=== PATIENT | male | born 1955 | race Caucasian/White ===

== ENCOUNTER 2023-12-01 09:38 | Outpatient (OUT) | payer MEDICARE, OTHER, SELFPAY ==
[2023-12-01 11:56] LABS: Prostate Specific Antigen Scrn 2.08 ng/mL (<=4.00)
== END 2023-12-01 09:39 | disposition home or self-care (01) ==
PROVIDERS: PCP Internal Medicine; Visit Provider Internal Medicine
DX: Z12.5 Encounter for screening for malignant neoplasm of prostate (principal)
CPT/HCPCS: 36415; G0103

== ENCOUNTER 2024-05-20 17:21 | Emergency (ER) | payer MEDICARE, OTHER, SELFPAY ==
[2024-05-20 17:32] VITALS: BP 156/101; PULSE 91; TEMP 36.4; O2SAT 97; BMI 25.8
--- NOTE | 2024-05-20 17:37 | XR_ITS ---
The [address] [address] Patient Name: SHAD JENSEN MRN: [id number] date: 1955 Sex: M Assigned Patient Location: ER Current Patient Location: Accession/Order Number: [id number] Exam Date: 05/20/2024 19:15 Report Date: 05/20/2024 20:51 At the request of: NON-STAFF PHYSICIAN Procedure: XR finger RT min 2V IMAGES REVIEWED: XR finger RT min 2V COMPARISON: None available. CLINICAL INDICATION: little finger crush injury FINDINGS/IMPRESSION: 1. Indeterminant tiny densities overlying the dorsal-ulnar aspect of the fifth digit soft tissues at the level of the PIP joint. Possible tiny retained foreign bodies versus at the skin surface. 2. Apparent fixed flexion deformity at the fifth PIP joint, may suggest extensor tendon injury. 3. No evidence of acute osseous abnormality of the right fifth digit. Electronically authenticated by: WEI BYERS Date: 05/20/2024 20:51
--- OUTSIDE RECORDS SUMMARY | 2024-05-20 17:41 | XMS_ITS | CCD ---
Author Organization [facility] CliniSyct Care Team Providers Care Electrical Solderer Name Role Phone REQUEST, DR SHAW LISTED Admitting Unavaila ble REQUEST, DR SHAW LISTED Attending Unavaila ble REQUEST, DR SHAW LISTED Consulting Unavaila ble BALL, DR IBANEZ Admitting Unavailable BALL, DR IBANEZ Attending Unavailable BALL, DR IBANEZ Primary Care Unavailable BALL, DR IBANEZ Consulting Unavailable BALL, DR IBANEZ Admitting Unavailable BALL, DR IBANEZ Attending Unavailable BALL, DR IBANEZ Primary Care Unavailable BALL, DR IBANEZ Consulting Unavailable BALL, DR IBANEZ Admitting Unavailable BALL, DR IBANEZ Attending Unavailable BALL, DR IBANEZ Primary Care Unavailable REQUEST, DR SHAW LISTED Consulting Unavaila ble Jigar, Alden Unavailable Sahara Hurley Unavailable Medications Current Medications Medication Drug Class(es) Dates Sig (Normalized) Sig (Original) olopatadine 2 mg/ml ophthalmic solution (3 sources) Histamine-1 Receptor Inhibitor Start: 04-05-2023 take 1 drop(s) into the eye(s) once daily Pataday 0.2 % 1 drop(s) each eye Once a day Use the drops as prescribed anterior symptoms improved Apr, Active Start: 04-05-2023 take 1 drop(s) into the eye(s) once daily Pataday 0.2 % 1 drop(s) each eye Once a day Use the drops as prescribed anterior symptoms improved Apr, Active Problems Active Problems Problem Classification Problem Date Documented Date Episodic/Chronic Abdominal hernia (2 sources) Inguinal hernia; Translations: [Unilateral inguinal hernia, without obstruction or gangrene, not specified as recurrent] Episodic Genitourinary symptoms and ill-defined conditions (7 sources) Nocturia; Translations: [Nocturia] Episodic Hyperplasia of prostate (11 sources) Lower urinary tract symptoms due to benign prostatic hypertrophy; Translations: [Benign prostatic hyperplasia with lower urinary tract symptoms] Onset: 01-20-2017 Chronic Inflammation; infection of eye (except that caused by tuberculosis or sexually transmitteddisease) (1 source) Acute atopic conjunctivitis, bilateral Episodic Open wounds of extremities (2 sources) Open wound of hand except fingers without complication; Translations: [Open wound of hand except finger(s) alone, without mention of complication] Episodic Other circulatory disease (2 sources) Elevated blood-pressure reading without diagnosis of hypertension; Translations: [Elevated blood-pressure reading, without diagnosis of hypertension] Episodic Other ear and sense organ disorders (2 sources) Sensorineural hearing loss, bilateral; Translations: [Sensorineural hearing loss, bilateral] Onset: 01-20-2017 Chronic Other ear and sense organ disorders (2 sources) Tinnitus; Translations: [Tinnitus, unspecified ear] Episodic Other injuries and conditions due to external causes (2 sources) History of fall; Translations: [History of falling] Episodic Other nervous system disorders (7 sources) Hereditary motor and sensory neuropathy; 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 Other nervous system disorders (2 sources) Hereditary motor and sensory neuropathy Chronic Other nutritional; endocrine; and metabolic disorders (5 sources) Body mass index 25-29 - overweight; Translations: [Overweight] Episodic Other nutritional; endocrine; and metabolic disorders (2 sources) Overweight Episodic Other nutritional; endocrine; and metabolic disorders (2 sources) Overweight; Translations: [Overweight] Episodic Skin and subcutaneous tissue infections (2 sources) Cellulitis and abscess of hand excluding digits; Translations: [Cellulitis and abscess of hand, except fingers and thumb] Episodic Past or Other Problems Problem Classification Problem Date Documented Da te Episodic/Chronic Other screening for suspected conditions (not mental disorders or infectious disease) (8 sources) Encounter for screening for malignant neoplasm of prostate; Translations: [Encounter for screening for diseases of the blood and blood-forming organs and certain disorders involving the immune mechanism] Onset: 01-20-2017 Episodic Results Test Name Value Interpretation Reference Range Facility CBC AUTO DIFFon 11-16-2022 BASO # 0.0 103/ul Normal 0.0-0.1 [facility] Comment on above: Performed By: #### DATCBC #### [facility] [address] [address] [address] Rebel Huitron Basophils/100 WBC (Bld) 0.4 % Normal 0.2-2.0 [facility] Comment on above: Performed By: #### DATCBC #### [facility] [address] [place] [address] Dr. Rebel Huitron EO # 0.1 103/ul Normal 0.0-0.7 [facility] Comment on above: Performed By: #### DATCBC #### [facility] [address] [place] [address] Dr. Rebel Huitron Eosinophils/100 WBC (Bld) 0.9 % Normal 0.9-7.0 [facility] Comment on above: Performed By: #### DATCBC #### [facility] [address] [place] [address] Dr. Rebel Huitron Erythrocyte distribution width (RBC) [Ratio] 13.5 % Normal 11.0-15.0 [facility] Comment on above: Performed By: #### DATCBC #### [facility] [address] [place] [address] Dr. Rebel Huitron Hematocrit (Bld) [Volume fraction] 43.4 % Normal 42.0-54.0 [facility] Comment on above: Performed By: #### DATCBC #### [facility] [address] [place] [address] Dr. Rebel Huitron Hemoglobin (Bld) [Mass/Vol] 14.7 g/dL Normal 14.0-18.0 [facility] Comment on above: Performed By: #### DATCBC #### [facility] [address] [place] [address] Dr. Rebel Huitron IG # 0.03 10e3/ul Normal 0.00-0.03 [facility] Comment on above: Performed By: #### DATCBC #### [facility] [address] [place] [address] Dr. Rebel Huitron IG % 0.4 % Normal 0.0-0.5 [facility] Comment on above: Performed By: #### DATCBC #### [facility] [address] [place] [address] Dr. Rebel Huitron LYMPH # 1.3 103/ul Normal 1.2-3.[address] [facility] Comment on above: Performed By: #### DATCBC #### [facility] [address] [place] [address] Dr. Rebel Huitron Lymphocytes/100 WBC (Bld) 19.3 % Critically low 20.5-60.0 [facility] Comment on above: Performed By: #### DATCBC #### [facility] [address] [place] [address] Dr. Rebel Huitron MCH (RBC) [Entitic mass] 28.9 pg Normal 25.9-34.0 [facility] Comment on above: Performed By: #### DATCBC #### [facility] [address] [place] [address] Dr. Rebel Huitron MCHC (RBC) [Mass/Vol] 33.9 g/dL Normal 29.9-35.2 [facility] Comment on above: Performed By: #### DATCBC #### [facility] [address] [place] [address] Dr. Rebel Huitron MCV (RBC) [Entitic vol] 85.3 fL Normal 80.0-94.0 [facility] Comment on above: Performed By: #### DATCBC #### [facility] [address] [place] [address] Dr. Rebel Huitron MONO # 0.5 103/ul Normal 0.3-0.8 [facility] Comment on above: Performed By: #### DATCBC #### [facility] [address] [place] [address] Dr. Rebel Huitron Monocytes/100 WBC (Bld) 8.0 % Normal 1.7-12.0 [facility] Comment on above: Performed By: #### DATCBC #### [facility] [address] [place] [address] Dr. Rebel Huitron NEUT # 4.8 103/ul Normal 1.4-6.5 [facility] Comment on above: Performed By: #### DATCBC #### [facility] [address] [place] [address] Dr. Rebel Huitron Neutrophils/100 WBC (Bld) 71.0 % Normal 43.0-75.0 [facility] Comment on above: Performed By: #### DATCBC #### [facility] [address] [address] [address] Rebel Huitron Platelet mean volume (Bld) [Entitic vol] 11.2 fL Normal 9.5-13.5 [facility] Comment on above: Performed By: #### DATCBC #### [facility] [address] [address] [address] Rebel Huitron PLT 171 103/ul Normal 150-[address] [facility] Comment on above: Performed By: #### DATCBC #### [facility] [address] [address] [address] Rebel Huitron RBC 5.09 106/ul Normal 4.70-6.10 [facility] Comment on above: Performed By: #### DATCBC #### [facility] [address] [place] [address] Dr. Rebel Huitron WBC 6.7 103/ul Normal 4.0-11.0 [facility] Comment on above: Performed By: #### DATCBC #### [facility] [address] [address] [address] Rebel Huitron ANTONIO- BMP WITH LIPIDon 2022 Anion gap [Moles/Vol] 11.1 mmol/L Normal [facility] Comment on above: Performed By: #### DATBMP #### [facility] [address] [place] [address] Dr. Rebel Huitron Calcium [Mass/Vol] 8.9 mg/dL Normal 8.5-10.[address] [facility] Comment on above: Performed By: #### DATBMP #### [facility] [address] [address] [address] Rebel Huitron Chloride [Moles/Vol] 103 mmol/L Normal 98-[address] [facility] Comment on above: Performed By: #### DATBMP #### [facility] [address] [address] [address] Rebel Huitron Cholesterol [Mass/Vol] 175 mg/dL Normal <=[address] [facility] Comment on above: Performed By: #### DATBMP #### [facility] [address] [address] [address] Rebel Huitron Cholesterol in HDL [Mass/Vol] 59 mg/dL Normal 40-60 [facility] Comment on above: Performed By: #### DATBMP #### [facility] [address] [address] [address] Rebel Huitron Cholesterol in LDL [Mass/Vol] 107.6 mg/dL Normal [facility] Comment on above: Performed By: #### DATBMP #### [facility] [address] [address] [address] Rebel Huitron CO2 [Moles/Vol] 27.2 mmol/L Normal 21.0-32.0 [facility] Comment on above: Performed By: #### DATBMP #### [facility] [address] [place] [address] Dr. Rebel Huitron Creatinine [Mass/Vol] 0.84 mg/dL Normal 0.70-1.30 [facility] Comment on above: Performed By: #### DATBMP #### [facility] [address] [place] [address] Dr. Rebel Huitron EGFR-AF JORDANIAN >60 Normal >=60 [facility] Comment on above: Performed By: #### DATBMP #### [facility] [address] [place] [address] Dr. Rebel Huitron EGFR-NON AF JORDANIAN >60 Normal >=[address] [facility] Comment on above: Performed By: #### DATBMP #### [facility] [address] [place] [address] Dr. Rebel Huitron Glucose [Mass/Vol] 85 mg/dL Normal 74-[address] [facility] Comment on above: Performed By: #### DATBMP #### [facility] [address] [place] [address] Dr. Rebel Huitron HDL NORMAL > or = 60 mg/dl - LO W CARDIOVASCULAR RISK <40 mg/dl - HIGH CARDIOVASCULAR RISK Normal [facility] Comment on above: Performed By: #### DATBMP #### [facility] [address] [address] [address] Rebel Huitron LDL CALC NORMAL SEE BELOW Normal [facility] Comment on above: Result Comment: <100 mg/dl OPTIMAL 100 - 129 mg/dl NEAR OR ABOVE OPTIMAL 130 - 159 mg/dl BORDERLINE HIGH 160 - 189 mg/dl HIGH >190 mg/dl VERY HIGH Performed By: #### D ATBMP #### [facility] [address] [address] [address] Rebel Huitron Potassium [Moles/Vol] 4.3 mmol/L Normal 3.5-5.1 [facility] Comment on above: Performed By: #### DATBMP #### [facility] [address] [address] [address] Rebel Huitron Sodium [Moles/Vol] 137 mmol/L Normal 136-145 [facility] Comment on above: Performed By: #### DATBMP #### [facility] [address] [address] [address] Rebel Huitron Triglyceride [Mass/Vol] 42 mg/dL Normal <=150 [facility] Comment on above: Performed By: #### DATBMP #### [facility] [address] [address] [address] Rebel Huitron Urea nitrogen [Mass/Vol] 17.0 mg/dL Normal 7.0-18.0 [facility] Comment on above: Performed By: #### DATBMP #### [facility] [address] [address] [address] Rebel Huitron Urea nitrogen/Creatin ine [Mass ratio] 20.2 mg/mg Normal [facility] Comment on above: Performed By: #### DATBMP #### [facility] [address] [address] [address] Rebel Huitron VLDL CALC 8.4 mg/dL Normal [facility] Comment on above: Performed By: #### DATBMP #### [facility] [address] [address] [address] Rebel Huitron COVID-19 Antigenon 2 COVID-19 Antigen Healthcare Worker?: N Byrant Reference Bryant Reference Negative SARS-CoV+SARS-CoV-2 (COVID-19) Ag [Presence] in Respiratory specimen by Rapid immunoassay Negative for SARS Antigen by ANGELINE COVID19 Blank Space Bryant Disclaimer Negative results, from patients with symptom Bryant Disclaimer onset beyond five days, should be treated as Bryant Disclaimer presumptive and confirmation with a molecular Bryant Disclaimer assay, if necessary, for patient management, Bryant Disclaimer may be performed. Negative results do not rule Bryant Disclaimer out COVID-19 and should not be used as the sole Bryant Disclaimer basis for treatment or patient management Bryant Disclaimer decisions, including infection control decisions. Bryant Disclaimer Negative results should be considered in the Bryant Disclaimer context of a patient's recent exposures, history Bryant Disclaimer and the presence of clinical signs and symptoms Bryant Disclaimer consistent with COVID-19. COVID19 Blank Space Bryant Disclaimer The Bryant SARS Antigen ANGELINE does not differentiate Bryant Disclaimer between SARS-CoV and SARS-CoV-2. COVID19 Blank Space Bryant Disclaimer This test was developed and its performance Bryant Disclaimer characteristic determined by [facility] and Bryant Disclaimer validated at [facility]. This Bryant Disclaimer test has not been FDA cleared or approved. This Bryant Disclaimer test has been authorized by FDA under an Emergency Use Bryant Disclaimer Authorization (EUA). This test has been validated Bryant Disclaimer in accordance with the FDA's Guidance Document (Policy Bryant Disclaimer for Diagnostics Testing in Laboratories Certified to Bryant Disclaimer Perform High Complexity Testing under CLIA prior to Bryant Disclaimer Emergency Use Authorization for Coronavirus Bryant Disclaimer is during the Public Health Emergency) Bryant Disclaimer issued on February 01, 2020. This test is only authorized Bryant Disclaimer for the duration of time the declaration that Bryant Disclaimer circumstances exist justifying the authorization of Bryant Disclaimer the emergency use of in vitro diagnostic tests for Bryant Disclaimer detection of SARS-CoV-2 virus and/or diagnosis of Bryant Disclaimer COVID-19 infection under section 564(b)(1) of the Bryant Disclaimer Act, 21 U.S.C. 360bbb-3(b)(1), unless the Bryant Disclaimer authorization is terminated or revoked sooner. PERFORMED BY: [place] [address] PATHOLOGIST CARDIOLOGY SPECIALIST JASON SAGE M.D. Normal [facility] Comment on above: Performed By: #### SOFIANEG, COVID-19 SO ANGELINE #### [facility] [address] [place] [address] Bryant Ag Negativeon 12-05-19 22 Bryant Ag Negative Negative Normal Negative [facility] Comment on above: Result Comment: This is a duplicate Teetee a SARS Antigen (ANGELINE) result to be used for statistical tracking purpose only. PERFORMED BY: [place] [address] PATHOLOGIST CARDIOLOGY SPECIALIST JASON SAGE M.D. Performed By: #### S OFIANEG, COVID-19 BRYANT #### [facility] [address] [place] [address] CBC AUTO DIFFon 11-20-2021 BASO # 0.0 103/ul Normal 0.0-0.1 [facility] Comment on above: Performed By: #### DATCBC #### [facility] [address] [address] [address] Rebel Huitron Basophils/100 WBC (Bld) 0.2 % Normal 0.2-2.0 [facility] Comment on above: Performed By: #### DATCBC #### [facility] [address] [place] [address] Dr. Rebel Huitron EO # 0.1 103/ul Normal 0.0-0.7 [facility] Comment on above: Performed By: #### DATCBC #### [facility] [address] [place] [address] Dr. Rebel Huitron Eosinophils/100 WBC (Bld) 1.2 % Normal 0.9-7.0 [facility] Comment on above: Performed By: #### DATCBC #### [facility] [address] [place] [address] Dr. Rebel Huitron Erythrocyte distribution width (RBC) [Ratio] 13.2 % Normal 11.0-15.0 [facility] Comment on above: Performed By: #### DATCBC #### [facility] [address] [place] [address] Dr. Rebel Huitron Hematocrit (Bld) [Volume fraction] 43.2 % Normal 42.0-54.0 [facility] Comment on above: Performed By: #### DATCBC #### [facility] [address] [place] [address] Dr. Rebel Huitron Hemoglobin (Bld) [Mass/Vol] 14.7 g/dL Normal 14.0-18.0 [facility] Comment on above: Performed By: #### DATCBC #### [facility] [address] [place] [address] Dr. Rebel Huitron IG # 0.03 10e3/ul Normal 0.00-0.03 [facility] Comment on above: Performed By: #### DATCBC #### [facility] [address] [place] [address] Dr. Rebel Huitron IG % 0.7 % Critically high 0.0-0.5 [facility] Comment on above: Performed By: #### DATCBC #### [facility] [address] [place] [address] Dr. Rebel Huitron LYMPH # 1.0 103/ul Critically low 1.2-3.8 [facility] Comment on above: Performed By: #### DATCBC #### [facility] [address] [place] [address] Dr. Rebel Huitron Lymphocytes/100 WBC (Bld) 23.4 % Normal 20.5-60.[address] [facility] Comment on above: Performed By: #### DATCBC #### [facility] [address] [place] [address] Dr. Rebel Huitron MCH (RBC) [Entitic mass] 29.1 pg Normal 25.9-34.[address] [facility] Comment on above: Performed By: #### DATCBC #### [facility] [address] [place] [address] Dr. Rebel Huitron MCHC (RBC) [Mass/Vol] 34.0 g/dL Normal 29.9-35.[address] [facility] Comment on above: Performed By: #### DATCBC #### [facility] [address] [place] [address] Dr. Rebel Huitron MCV (RBC) [Entitic vol] 85.5 fL Normal 80.0-94.[address] [facility] Comment on above: Performed By: #### DATCBC #### [facility] [address] [place] [address] Dr. Rebel Huitron MONO # 0.5 103/ul Normal 0.3-0.[address] [facility] Comment on above: Performed By: #### DATCBC #### [facility] [address] [place] [address] Dr. Rebel Huitron Monocytes/100 WBC (Bld) 12.1 % Critically high 1.7-12.[address] [facility] Comment on above: Performed By: #### DATCBC #### [facility] [address] [place] [address] Dr. Rebel Huitron NEUT # 2.7 103/ul Normal 1.4-6.[address] [facility] Comment on above: Performed By: #### DATCBC #### [facility] [address] [place] [address] Dr. Rebel Huitron Neutrophils/100 WBC (Bld) 62.4 % Normal 43.0-75.[address] [facility] Comment on above: Performed By: #### DATCBC #### [facility] [address] [place] [address] Dr. Rebel Huitron Platelet mean volume (Bld) [Entitic vol] 10.8 fL Normal 9.5-13.[address] [facility] Comment on above: Performed By: #### DATCBC #### [facility] [address] [place] [address] Dr. Rebel Huitron PLT 187 103/ul Normal 150-[address] [facility] Comment on above: Performed By: #### DATCBC #### [facility] [address] [place] [address] Dr. Rebel Huitron RBC 5.05 106/ul Normal 4.70-6.[address] [facility] Comment on above: Performed By: #### DATCBC #### [facility] [address] [place] [address] Dr. Rebel Huitron WBC 4.3 103/ul Normal 4.0-11.[address] [facility] Comment on above: Performed By: #### DATCBC #### [facility] [address] [place] [address] Dr. Rebel Huitron ANTONIO- BMP WITH LIPIDon 2021 Anion gap [Moles/Vol] 12.5 mmol/L Normal [facility] Comment on above: Performed By: #### DATBMP #### [facility] [address] [place] [address] Dr. Rebel Huitron Calcium [Mass/Vol] 8.9 mg/dL Normal 8.4-10.[address] [facility] Comment on above: Performed By: #### DATBMP #### [facility] [address] [place] [address] Dr. Rebel Huitron Chloride [Moles/Vol] 102 mmol/L Normal 98-[address] [facility] Comment on above: Performed By: #### DATBMP #### [facility] [address] [place] [address] Dr. Rebel Huitron Cholesterol [Mass/Vol] 162 mg/dL Normal <=200 [facility] Comment on above: Performed By: #### DATBMP #### [facility] [address] [place] [address] Dr. Rebel Huitron Cholesterol in HDL [Mass/Vol] 50 mg/dL Normal [facility] Comment on above: Performed By: #### DATBMP #### [facility] [address] [address] [address] Rebel Huitron Cholesterol in LDL [Mass/Vol] 102.0 mg/dL Normal [facility] Comment on above: Performed By: #### DATBMP #### [facility] [address] [place] [address] Dr. Rebel Huitron CO2 [Moles/Vol] 29.6 mmol/L Normal 22.0-30.0 [facility] Comment on above: Performed By: #### DATBMP #### [facility] [address] [place] [address] Dr. Rebel Huitron Creatinine [Mass/Vol] 0.93 mg/dL Normal 0.66-1.25 [facility] Comment on above: Performed By: #### DATBMP #### [facility] [address] [place] [address] Dr. Rebel Huitron EGFR-AF JORDANIAN >60 Normal >=60 [facility] Comment on above: Performed By: #### DATBMP #### [facility] [address] [place] [address] Dr. Rebel Huitron EGFR-NON AF JORDANIAN >60 Normal >=[address] [facility] Comment on above: Performed By: #### DATBMP #### [facility] [address] [place] [address] Dr. Rebel Huitron Glucose [Mass/Vol] 90 mg/dL Normal 74-[address] [facility] Comment on above: Performed By: #### DATBMP #### [facility] [address] [place] [address] Dr. Rebel Huitron HDL NORMAL > or = 60 mg/dl - LO W CARDIOVASCULAR RISK <40 mg/dl - HIGH CARDIOVASCULAR RISK Normal [facility] Comment on above: Performed By: #### DATBMP #### [facility] [address] [address] [address] Rebel Huitron LDL CALC NORMAL SEE BELOW Normal [facility] Comment on above: Result Comment: <100 mg/dl OPTIMAL 100 - 129 mg/dl NEAR OR ABOVE OPTIMAL 130 - 159 mg/dl BORDERLINE HIGH 160 - 189 mg/dl HIGH >190 mg/dl VERY HIGH Performed By: #### D ATBMP #### [facility] [address] [address] [address] Rebel Huitron Potassium [Moles/Vol] 4.1 mmol/L Normal 3.4-5.0 [facility] Comment on above: Performed By: #### DATBMP #### [facility] [address] [address] [address] Rebel Huitron Sodium [Moles/Vol] 140 mmol/L Normal 137-145 [facility] Comment on above: Performed By: #### DATBMP #### [facility] [address] [address] [address] Rebel Huitron Triglyceride [Mass/Vol] 50 mg/dL Normal <=150 [facility] Comment on above: Performed By: #### DATBMP #### [facility] [address] [address] [address] Rebel Huitron Urea nitrogen [Mass/Vol] 17.0 mg/dL Normal 9.0-20.0 [facility] Comment on above: Performed By: #### DATBMP #### [facility] [address] [address] [address] Rebel Huitron Urea nitrogen/Creatin ine [Mass ratio] 18.3 mg/mg Normal [facility] Comment on above: Performed By: #### DATBMP #### [facility] [address] [address] [address] Rebel Huitron VLDL CALC 10.0 mg/dL Normal [facility] Comment on above: Performed By: #### DATBMP #### [facility] [address] [address] [address] Rebel Huitron Ambulatory Clinical Summaryo n 12-11-2020 Ambulatory Clinical Summary {[id number] Normal [facility] General Surgery Office/Clini c Noteon 12-11-2020 General Surgery Office/Clinic Note HPI Staff 3 week post operative visit following RIHR with mesh. Denies pain. History of Present Illness 3 wks s/p RIHR with mesh, doing well, denies pain, continues with some induration at incision, no drainage; normal bms, no strenuous actvities. Review of Systems ROS - Provider Constitutional: no fever, no sweats, no weight loss. Eyes: no glasses, no blurred vision, no visual loss. ENMT: no dentures, no hoarseness, no swallowing difficulties, no hearing loss, no ear infection(s), no nose bleeds. Cardiovascular: normal blood pressure, no chest pain, regular heartbeat, no heart murmur. Respiratory: no shortness of breath, no cough, no asthma, no wheezing. Gastrointestinal: no nausea, no vomiting, no diarrhea, no constipation, no blood in stool, no change in bowel habits, no abdominal pain, no hepatitis. Genitourinary: no kidney stones, no urine infection, no dysuria. Musculoskeletal: no pain, no weakness. Skin: no changing moles, no rash, no skin lumps. Neurologic: no seizures, no epilepsy, no headache. Psychiatric: no emotional or psychiatric problem. Heme/Lymph: no bleeding problems, no anemia, no blood clots, no transfusions. Allergy/Immunologic: no swollen lymph nodes/glands, no IV drug abuse. Other: Additional ROS info: Except as noted in the above Review of Systems and in the History of Present Illness, all other systems have been reviewed and are negative or noncontributory. Physical Exam abd: soft, nondistended; incision with fusiform induration, no fluctuance or drainage, no erythema; nontender, no recurrent hernia. Assessment/Plan 1. Reducible right inguinal hernia (K40.90: Unilateral inguinal hernia, without obstruction or gangrene, not specified as recurrent) doing well; possible small seroma; verses induration of subcutaneous tissue; monitor; in 1 week, gradually resume regular activities; call with problems/questions. 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 Medications No active medications Allergies No Known Allergies No Known Medication Allergies Social History Alcohol - Denies Alcohol Use, 11/07/2020 Substance Abuse - Denies Substance Abuse, 11/07/2020 Tobacco Never (less than 100 in lifetime) Tobacco Use:., 12/11/2020 Family History Cardiac arrest: Father. Immunizations Vaccine Date Status Comments influenza virus vaccine, inactivated - Not Given Patient Refuses [facility] Comment on above: Result Comment: Electronically Signed By : YVETTE BUNCH, Abdifatah Tran\Date and Time Signed: 12/11/20 14:01 EST Ambulatory Clinical Summaryo n 11-29-2020 Ambulatory Clinical Summary {[id number] Normal [facility] General Surgery Office/Clini c Noteon 11-29-2020 General Surgery Office/Clinic Note Chief Complaint Post op RIH repair HPI Staff 9 day post operative visit following right inguinal hernia repair with mesh at [facility]. Is not taking pain medication. Denies drainage or redness from the incision. Bowels are moving normal. History of Present Illness 9 days s/p RIHR with mesh, doing well, did not take any pain medication, mild soreness, no drainage; normal bms; voiding without difficulties; no heavy lifting. Review of Systems HEENT: normal conjunctiva, sclera clear, no scleral icterus, EOM intact, PERRLA, oral mucosa moist without lesions. Neck: trachea midline, no mass, symmetric, no thyromegaly or nodules, no adenopathy Respiratory: lungs CTA, respirations non labored. Cardiovascular: regular rate and rhythm, no murmur, no pedal edema or varicosities. Gastrointestinal: soft, non distended, mild tenderness, no masses, no palpable hernias, diastasis recti no, no hepatosplenomegaly; normal bs Lymphatic: no cervical adenopathy, no axillary adenopathy, no inguinal adenopathy. Musculoskeletal: normal gait, digits and nails without infection, nodes, cyanosis, clubbing. Skin: no rashes, no lesions, no ulcers, no subcutaneous nodules, induration. Psychiatric/Neuro: oriented to time, place, person, judgement normal, affect appropriate for age, insight intact, no focal deficits. Tests: labs reviewed, x-rays reviewed, review of old records completed, _ surgical options, risks, and possible complications with patient. Physical Exam Vitals & Measurements BP: 130/72 HT: 182.9 cm HT: 182.88 cm WT: 90.4 kg WT: 90.4 kg BMI: 27.03 abd: soft, nondistended; incision without erythema or drainage, mild induration, no ecchymoses. Assessment/Plan 1. Reducible right inguinal hernia (K40.90: Unilateral inguinal hernia, without obstruction or gangrene, not specified as recurrent) doing well, continue no lifting > 10 lbs for an additional 3 weeks, follow up in 2 weeks, call sooner if problems/questions. 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 Medications No active medications Allergies No Known Allergies No Known Medication Allergies Social History Alcohol - Denies Alcohol Use, 11/07/2020 Substance Abuse - Denies Substance Abuse, 11/07/2020 Tobacco Never (less than 100 in lifetime) Tobacco Use:., 11/07/2020 Family History Cardiac arrest: Father. Immunizations Vaccine Date Status Comments influenza virus vaccine, inactivated - Not Given Patient Refuses [facility] Comment on above: Result Comment: Electronically Signed By : YVETTE BUNCH, Abdifatah Tran\Date and Time Signed: 11/29/20 11:03 EST Operative Reporton Operative Report [id number]:127 [facility] Lab Reportson 11-18-2020 Lab Reports [id number]#1.00CD:127 [facility] ECG 12-Leadon 11-13-2020 ECG 12-Lead [id number]#1.00CD:127 [facility] Consent for Procedure/Surger yon 11-11-2020 Consent for Procedure/Surger y [id number]:127 [facility] Provider Letter FTon 11-11 Provider Letter [facility] ALDEN ROBERSON, [address] [place] [address] Re: MARIAN NICOLE Date of : 1955 Thank you for your referral of Marian Nicole who was seen on consultation for Right inguinal hernia. A right inguinal herniorrhaphy with mesh is planned. I have enclosed my consultation notes for your review. I will happy to follow Marian. Sincerely yours, Abdifatah Roman MD General Surgery [facility] Facesheeton 11-08-2020 Facesheet [id number]:127 [facility] Ambulatory Clinical Summaryo n 11-07-2020 Ambulatory Clinical Summary {[id number]}CD:[id number] [facility] General Surgery Office/Clini c Noteon 11-07-2020 General Surgery Office/Clinic Note Chief Complaint referral for [facility] Staff 65 year old male presents on consultation from Dr. Roberson for right inguinal hernia. Present since last summer. Has not increased in size. Minimal discomfort. No use of pain medication. Denies nausea or vomiting. Bowels moving well. History of Present Illness 65 yo male referred for 1 year h/o Right inguinal hernia, gradually enlarging; sore at times; reducible; no skin changes, no N/V; no bowel changes, no previous abdominal operations; sore with lifting at times; no chronic cough or tobacco use, no aa or NSAID use. Review of Systems PHQ Score Initial Depression Screen Score: 0 ROS - Provider Constitutional: no fever, no sweats, no weight loss. Eyes: no glasses, no blurred vision, no visual loss. ENMT: no dentures, no hoarseness, no swallowing difficulties, no hearing loss, no ear infection(s), no nose bleeds. Cardiovascular: normal blood pressure, no chest pain, regular heartbeat, no heart murmur. Respiratory: no shortness of breath, no cough, no asthma, no wheezing. Gastrointestinal: no nausea, no vomiting, no diarrhea, no constipation, no blood in stool, no change in bowel habits, mild abdominal pain, no hepatitis. Genitourinary: no kidney stones, no urine infection, no dysuria. Musculoskeletal: no pain, no weakness. Skin: no changing moles, no rash, no skin lumps. Neurologic: no seizures, no epilepsy, no headache. Psychiatric: no emotional or psychiatric problem. Heme/Lymph: no bleeding problems, no anemia, no blood clots, no transfusions. Allergy/Immunologic: no swollen lymph nodes/glands, no IV drug abuse. Other: Additional ROS info: Except as noted in the above Review of Systems and in the History of Present Illness, all other systems have been reviewed and are negative or noncontributory. Physical Exam Vitals & Measurements T: 36.7 ?C (Tympanic) HR: 82(Peripheral) RR: 16 BP: 132/78 HT: 167.64 cm HT: 167.6 cm WT: 71.2 kg WT: 71.2 kg BMI: 25.34 HEENT: normal conjunctiva, sclera clear, no scleral icterus, EOM intact, PERRLA, oral mucosa moist without lesions. Neck: trachea midline, no mass, symmetric, no thyromegaly or nodules, no adenopathy Respiratory: lungs CTA, respirations non labored. Cardiovascular: regular rate and rhythm, no murmur, no pedal edema or varicosities. Gastrointestinal: soft, non distended, no tenderness, no masses, reducible right inguinal hernia, no skin changes, nontender, no left inguinal hernia; diastasis recti no, no hepatosplenomegaly; normal bs Lymphatic: no cervical adenopathy, no axillary adenopathy, no inguinal adenopathy. Musculoskeletal: abnormal gait, digits and nails; finger deformities bilaterally without infection, nodes, cyanosis, clubbing. Skin: no rashes, no lesions, no ulcers, no subcutaneous nodules, induration. Psychiatric/Neuro: oriented to time, place, person, judgement normal, affect appropriate for age, insight intact, no focal deficits. Tests: review of old records completed, Discussed surgical options, risks, and possible complications with patient. Assessment/Plan 1. Reducible right inguinal hernia (K40.90: Unilateral inguinal hernia, without obstruction or gangrene, not specified as recurrent) plan right inguinal herniorrhaphy with mesh insertion; informed consent obtained. signs/symptoms of incarceration/strangulation of hernia explained in detail, and patient understands that he should seek prompt medical evaluation if they were to occur. patient understands the risks associated with COVID-19, and the need for preoperative testing with self-isolation until the procedure. Ancef 2 gms IV prior to OR SCDs Orders: Most recent diastolic blood pressure <80 mm Hg 3078F Systolic BP 130-139 mm Hg (Most Recent) 3075F Follow-up No qualifying data available Patient Education Inguinal Hernia, Adult, Care After Hernia, Seit-pf-Wrqw Exercise to Lose Weight, Zuew-wz-Sucm Problem List/Past Medical History Ongoing BPH associated with nocturia Yczsotp-Jsmrj-Qxcju disease Reducible right inguinal hernia Historical No qualifying data Procedure/Surgical History EGD - Esophagogastroduodenoscopy (11/01/2010), Colonoscopy (11/01/2000), Vasectomy. Medications No active medications Allergies No Known Allergies No Known Medication Allergies Social History Alcohol - Denies Alcohol Use, 11/07/2020 Substance Abuse - Denies Substance Abuse, 11/07/2020 Tobacco Never (less than 100 in lifetime) Tobacco Use:., 11/07/2020 Family History Cardiac arrest: Father. [facility] Comment on above: Result Comment: Electronically Signed By : YVETTE BUNCH, Abdifatah Tran\Date and Time Signed: 11/07/20 12:23 EST Patient Educationon 11-07-19 Patient Education Exercise to Lose Weight Exercise and a healthy diet may help you lose weight. Your doctor may suggest specific exercises. EXERCISE IDEAS AND TIPS ? Choose low-cost things you enjoy doing, such as walking, bicycling, or exercising to workout videos. ? Take stairs instead of the elevator. ? Walk during your lunch break. ? Park your car further away from work or school. ? Go to a gym or an exercise class. ? Start with 5 to 10 minutes of exercise each day. Build up to 30 minutes of exercise 4 to 6 days a week. ? Wear shoes with good support and comfortable clothes. ? Stretch before and after working out. ? Work out until you breathe harder and your heart beats faster. ? Drink extra water when you exercise. ? Do not do so much that you hurt yourself, feel dizzy, or get very short of breath. Exercises that burn about 150 calories: ? Running 1 ? miles in 15 minutes. ? Playing volleyball for 45 to 60 minutes. ? Washing and waxing a car for 45 to 60 minutes. ? Playing touch football for 45 minutes. ? Walking 1 ? miles in 35 minutes. ? Pushing a stroller 1 ? miles in 30 minutes. ? Playing basketball for 30 minutes. ? Raking leaves for 30 minutes. ? Bicycling 5 miles in 30 minutes. ? Walking 2 miles in 30 minutes. ? Dancing for 30 minutes. ? Shoveling snow for 15 minutes. ? Swimming laps for 20 minutes. ? Walking up stairs for 15 minutes. ? Bicycling 4 miles in 15 minutes. ? Gardening for 30 to 45 minutes. ? Jumping rope for 15 minutes. ? Washing windows or floors for 45 to 60 minutes. Document Released: 11/20/2011 Document Revised: 01/09/2013 Document Reviewed: 11/20/2011 ExitCare? Patient Information ?2014 [employer] [facility]. Family Medicine Inguinal Hernia, Adult Care After Refer to this sheet in the next few weeks. These discharge instructions provide you with general information on caring for yourself after you leave the hospital. Your caregiver may also give you specific instructions. Your treatment has been planned according to the most current medical practices available, but unavoidable complications sometimes occur. If you have any problems or questions after discharge, please call your caregiver. HOME CARE INSTRUCTIONS ? Put ice on the operative site. ? Put ice in a plastic bag. ? Place a towel between your skin and the bag. ? Leave the ice on for 15-20 minutes at a time, 3-4 times a day while awake. ? Change bandages (dressings ) as directed. ? Keep the wound dry and clean. The wound may be washed gently with soap and water. Gently blot or dab the wound dry. It is okay to take showers 24 to 48 hours after surgery. Do not take baths, use swimming pools, or use hot tubs for 10 days, or as directed by your caregiver. ? Only take icpi-esb-ykuyvgf or prescription medicines for pain, discomfort, or fever as directed by your caregiver. ? Continue your normal diet as directed. ? Do not lift anything more than 10 pounds or play contact sports for 3 weeks, or as directed. SEEK MEDICAL CARE IF: ? There is redness, swelling, or increasing pain in the wound. ? There is fluid (pus ) coming from the wound. ? There is drainage from a wound lasting longer than 1 day. ? You have an oral temperature above 102? F (38.9? C). ? You notice a bad smell coming from the wound or dressing. ? The wound breaks open after the stitches (sutures ) have been removed. ? You notice increasing pain in the shoulders (shoulder strap areas). ? You develop dizzy episodes or fainting while standing. ? You feel sick to your stomach (nauseous ) or throw up (vomit ). SEEK IMMEDIATE MEDICAL CARE IF: ? You develop a rash. ? You have difficulty breathing. ? You develop a reaction or have side effects to medicines you were given. MAKE SURE YOU: ? Understand these instructions. ? Will watch your condition. ? Will get help right away if you are not doing well or get worse. Document Released: 11/18/2007 Document Revised: 01/09/2013 Document Reviewed: 09/17/2010 ExitCare? Patient Information ?2014 [employer]. Hernia A hernia happens when an organ inside your body pushes out through a weak spot in your belly (abdominal ) wall. Most hernias get worse over time. They can often be pushed back into place (reduced ). Surgery may be needed to repair hernias that cannot be pushed into place. HOME CARE ? Keep doing normal activities. ? Avoid lifting more than 10 pounds (4.5 kilograms). ? Cough gently and avoid straining. Over time, these things will: ? Increase your hernia size. ? Irritate your hernia. ? Break down hernia repairs. ? Stop smoking. ? Do not wear anything tight over your hernia. Do not keep the hernia in with an outside bandage. ? Eat food that is high in fiber (fruit, vegetables, whole grains). ? Drink enough fluids to keep your pee (urine ) clear or pale yellow. ? Take medicines to make your poop soft (stool softeners ) if you cannot poop (constipated ). GET HELP RIGHT AWAY IF: ? You have a fever. ? You have belly pain that gets worse. ? You feel sick to your stomach (nauseous ) and throw up (vomit ). ? Your skin starts to bulge out. ? Your hernia turns a different color, feels hard, or is tender. ? You have increased pain or puffiness (swelling ) around the hernia. ? You poop more or less often. ? Your poop does not look the way normally does. ? You have watery poop (diarrhea ). ? You cannot push the hernia back in place by applying gentle pressure while lying down. MAKE SURE YOU: ? Understand these instructions. ? Will watch your condition. ? Will get help right away if you are not doing well or get worse. Document Released: 04/07/2011 Document Revised: 01/09/2013 Document Reviewed: 04/07/2011 ExitCare? Patient Information ?2013 [employer]. [facility] Physician Referralon 021 Physician Referral [id number]#[id number]:127 [facility] Vital Signs Date Time Vital Sign Value Performing Clinician Facility 12-01-2023 09:00-0500 Body height 167.64 cm Alden Roberson Other [facility] Other 12-01-2023 09:00-0500 Body mass index (BMI) [Ratio] 26.85 kg/m2 Alden Factor 14 Other [facility] Other 12-01-2023 09:00-0500 Body weight 75.48 kg Alden Factor 14 Other [facility] Other 12-01-2023 09:00-0500 Diastolic blood pressure 80 mm[Hg] Alden Ball Other [facility] Other 12-01-2023 09:00-0500 Respiratory rate 12 /min Alden Ball Other [facility] Other 12-01-2023 09:00-0500 Systolic blood pressure 130 mm[Hg] Alden Ball Other [facility] Other 04-05-2023 12:20-0400 Body height 167.64 cm Sahara Hurley Other [facility] Other 04-05-2023 12:20-0400 Body mass index (BMI) [Ratio] 26.6 kg/m2 Sahara Evansmond Other [facility] Other 04-05-2023 12:20-0400 Body temperature 98 [degF] Sahara Hurley Other [facility] Other 04-05-2023 12:20-0400 Body weight 74.75 kg Sahara Hurley Other [facility] Other 04-05-2023 12:20-0400 Respiratory rate 18 /min Sahara Evansmond Other [facility] Other 04-05-2023 12:20-0400 SaO2% (BldA) [Mass fraction] 98 % Sahaar Mei Other [facility] Other 11-16-2022 12:00-0500 Body height 167.64 cm Alden Ball Other [facility] Other 11-16-2022 12:00-0500 Body mass index (BMI) [Ratio] 27.02 kg/m2 Alden Roberson Other [facility] Other 11-16-2022 12:00-0500 Body weight 75.93 kg Alden Roberson Other [facility] Other 11-16-2022 12:00-0500 Diastolic blood pressure 70 mm[Hg] Alden Roberson Other [facility] Other 11-16-2022 12:00-0500 Respiratory rate 12 /min Alden Roberson Other [facility] Other 11-16-2022 12:00-0500 Systolic blood pressure 118 mm[Hg] Alden Roberson Other [facility] Other Encounters Encounter Date Encounter Type Care Provider Facility Start: 12-03-2023 End: 12-03-2023 ambulatory Alden Roberson Other [facility] Other Start: 12-03-2023 Telephone encounter Alden France [facility] Start: 12-01-2023 End: 12-01-2023 ambulatory Alden Roberson Other [facility] Other Start: 12-01-2023 Patient encounter procedure Alden Roberson [facility] Start: 04-05-2023 End: 04-05-2023 ambulatory Sahara Hurley Other [facility] Other Start: 04-05-2023 Office outpatient vi sit 15 minutes Sahara Hurley [facility] Start: 11-18-2022 End: 11-18-2022 ambulatory Alden Roberson Other [facility] Other Start: 11-18-2022 Telephone encounter Alden WHALEN [facility] Start: 11-16-2022 Patient encounter procedure Alden Roberson [facility] Start: 11-16-2022 End: 11-17-[address] ALDEN ROBERSON Facility:[facility] Start: 11-22-2021 End: 11-23-[address] SHAW LISTED REQUEST Facility:[facility] Start: 11-20-2021 End: 11-21-[address] ALDEN ROBERSON Facility:[facility] Start: 10-29-2021 Adult health examination Alden Roberson Other [facility] Other Procedures Date Procedure Procedure Detail Performing Clinician Start: 11-16-[address] COLIN Brar ISTED REQUEST Comment on above: Performed By: #### P SASC #### [facility] [address] [place] [address] Dr. Rebel Huitron Start: 11-20-[address] COLIN Brar ISTED REQUEST Comment on above: Performed By: #### P SASC #### [facility] [address] [place] [address] Dr. Rebel Huitron Start: 01-20-2017 General examination of patient Alden Roberson Other Start: 01-20-2017 Hyperlipidemia screening Alden Roberson Other Start: 01-20-2017 Screening for malign ant neoplasm of prostate Alden Roberson Other Start: 01-20-2017 Viral screening Polly Roberson Other Depression screening Polly n Jigar Other Depression screening Heidiami n J[facility] Other Screening for malign ant neoplasm of prostate Alden Roberson Other Immunizations Immunization Date Immunization Notes Care Provider Jihan cole 11-07-2020 zoster vaccine, live Polly Roberson Other [facility] Other Payers Date Payer Category Payer Medicare [id number] 1959 Self-pay 1959 Unknown [id number] 1955 Unknown [id number] [id number] [id number] 1955 Unknown [id number] 2.16.84 [id number] Unknown [id number] 2.16.84 [id number] Unknown [id number] 2.16.84 [id number] Social History Date Type Detail Facility Sex Assigned At [facility] [employer] Other Evaluation note 12-01-2023 Note Date & Type Note Facility 12-01-2023 Evaluation note Encounter Date Diagnosis Assessment Notes Nov, Medicare annual wellness visit, subsequent (ICD-10 - Z00.00) Personalized health advice was given to the beneficiary including a written plan for screenings discussed and provided. Advanced care planning reviewed and/or information given as requested. Additional counseling was provided here today in regards to, [ ]. The above visit was performed by [ ], under direct supervision of [ ]. Document reviewed and amended by provider signed below. 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 Nov, Overweight (BMI 25.0-29.9) (ICD-10 - E66.3) This patient has been instructed on a low-fat, high-fiber diet. They are instructed to reduce calories, portion sizes and snacks. It is recommended that they exercise for 30 minutes, 3-5 times weekly. Nov, Nocturia (ICD-10 - R35.1) Nov, Benign prostatic hyperplasia with lower urinary tract symptoms (ICD-10 - N40.1) Symptoms tolerable COntinue to monitor Discussed medical teratment w/ Flomax if needed. Nov, Screening PSA (prostate specific antigen) (ICD-10 - Z12.5) Yearly MARISSA and PSA [facility] [employer] Other Evaluation note 04-05-2023 Note Date & Type Note Facility 04-05-2023 Evaluation note Encounter Date Diagnosis Assessment Notes Apr, Allergic conjunctivitis of both eyes (ICD-10 - H10.13) Eye allergic reaction home care material was printed Drink plenty fluids, get plenty of rest. Use the eyedrops as prescribed. Consider taking Zyrtec or Dori for allergies. Follow-up with family physician if no improvement in 2 to 3 days [facility] Other Evaluation note 11-16-2022 Note Date & Type Note Facility 11-16-2022 Evaluation note Encounter Date Diagnosis Assessment Notes Nov, Medicare annual wellness visit, subsequent (ICD-10 - Z00.00) Personalized health advice was given to the beneficiary including a written plan for screenings discussed and provided. Advanced care planning reviewed and/or information given as requested. Additional counseling was provided here today in regards to, [ ]. The above visit was performed by [ ], under direct supervision of [ ]. Document reviewed and amended by provider signed below. Healthy diet and exercise. Reviewed age-appropriate preventive testing recommended. 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 Nov, Overweight (BMI 25.0-29.9) (ICD-10 - E66.3) This patient has been instructed on a low-fat, high-fiber diet. They are instructed to reduce calories, portion sizes and snacks. It is recommended that they exercise for 30 minutes, 3-5 times weekly. Nov, Nocturia (ICD-10 - R35.1) Nov, Benign prostatic hyperplasia with lower urinary tract symptoms (ICD-10 - N40.1) Yearly MARISSA and PSA Nov, Screening PSA (prostate specific antigen) (ICD-10 - Z12.5) [facility] Other Evaluation note Note Date & Type Note Facility Evaluation note No Information [employer] Other History general Narrative - Reported Note Date & Type Note Facility History general Narrative - Reported Type Medical History Charcot Sherin Tooth muscular atr ophy Medical History Body mass index (BMI ) of 25.0 to 29.9 Medical History Depression screening Medical History Benign prostatic hyp erplasia with lower urinary tract symptoms Medical History Nocturia Surgical History Colonoscopy 12/09/21 Surgical History Right inguinal hernia repair Surgical History EGD 2010 Hospitalization History see surgical history [facility] Other Summary Purpose Family History No Family History Records FoundNo Family History Records FoundNo Family History Records Found Advance Directives No Advanced Directives Records FoundNo Advanced Directives Records FoundNo Advanced Directives Records Found Additional Source Comments (unrecognized sect ion and content) No Status Records FoundNo Status Records FoundNo Status Records Found INFORMATION SOURCE (unrecogn ized section and content) DATE CREATED AUTHOR 12/13/2020 [facility] DATE CREATED AUTHOR AUTHOR'S ORGANIZ ATION 01/19/2022 [facility] DATE CREATED AUTHOR AUTHOR'S ORGANIZ ATION 11/17/2022 [facility] REASON FOR VISIT (unrecogniz ed section and content) [facility] Results[facility]OSSIBLE [facility]ness[facility] results FOR RECORDS PERTAINING TO PATIENTS WHO ARE OR HAVE BEEN ENROLLED IN A CHEMICAL DEPENDENCY/SUBSTANCEABUSE PROGRAM, SOME INFORMATION MAY BE OMITTED. This clinical summary was aggregated from multiple sources. Caution should be exercised in using it in the provision of clinical care. This summary normalizes information from multiple sources, and as a consequence, information in this document may materially change the coding, format and clinical context of patient data. In addition, data may be omitted in some cases. CLINICAL DECISIONS SHOULD BE BASED ON THE PRIMARY CLINICAL RECORDS. [employer] provides no warranty or guarantee of the accuracy or completeness of information in this document.
[2024-05-20 21:27] VITALS: BP 170/92; PULSE 72; O2SAT 100
--- NOTE | 2024-05-20 21:50 | ED.UPPEXIN1 ---
HPI HPI - Extremity Injury (Upper) General Chief Complaint: Extremity Injury, Upper Stated Complaint: UPPER EXTREMITY INJURY Time Seen by Provider: 05/20/24 21:42 Source: patient Mode of arrival: walk-in Limitations: no limitations History of Present Illness HPI narrative: 69-year-old male presenting for an injury to his right fifth finger that happened before noon today, over 10 hours ago. It got crushed between 2 heavy metal wheels. He was not grinding. Last tetanus shot was 6 years ago. 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 Related Data Previous Rx's ?Medication ?Instructions ?Recorded cephalexin 500 mg capsule 500 mg PO QID 5 days #20 caps 05/20/24 Allergies Allergy/AdvReac Type Severity Reaction Status Date / Time No Known Drug Allergies Allergy Verified 05/20/24 17:34 Opioid HPI Opioid Management Most Recent Pain and Opioid Data: No Data to Display Review of Systems ROS Narrative A ten point review of systems is negative except as noted above. Exam Narrative Exam Narrative: Nurses note and vital signs reviewed and patient is not hypoxic. General: The patient appears well and in no apparent distress. Patient is resting comfortably on cart. Skin: Warm, dry, no pallor noted. There is no rash noted. Head: Normocephalic, atraumatic Eye: Normal conjunctiva, no drainage Ears, Nose, Mouth, and Throat: oral mucosa is moist. Nares patent. Cardiovascular: Regular Rate and Rhythm Respiratory: Patient is in no distress, no accessory muscle use, lungs are clear to auscultation, no wheezing, rales or rhonchi Back: non-tender GI: Soft and nontender Musculoskeletal: The right hand is examined. He has a puncture type wound adjacent to the nail on the right fifth finger on the ulnar side. There is no wound at the PIP. He has flexion and extension at the PIP and DIP but he has longstanding deformities of all the joints of that hand. Neurological: Awake and alert Psychiatric: Cooperative Constitutional Vital Signs, click to edit/add: Last Vital Signs Temp 97.6 F 05/20/24 17:32 Pulse 72 05/20/24 21:27 Resp 18 05/20/24 21:27 BP 170/92 H 05/20/24 21:27 Pulse Ox 100 05/20/24 21:27 O2 Del Method Room Air 05/20/24 21:27 Course Vital Signs Vital signs: Vital Signs Temperature 97.6 F 05/20/24 17:32 Pulse Rate 91 H 05/20/24 17:32 Respiratory Rate 18 05/20/24 17:32 Blood Pressure 156/101 H 05/20/24 17:32 Pulse Oximetry 97 05/20/24 17:32 Oxygen Delivery Method Room Air 05/20/24 17:32 Temperature 97.6 F 05/20/24 17:32 Pulse Rate 72 05/20/24 21:27 Respiratory Rate 18 05/20/24 21:27 Blood Pressure 170/92 H 05/20/24 21:27 Pulse Oximetry 100 05/20/24 21:27 Oxygen Delivery Method Room Air 05/20/24 21:27 MDM - Extremity Injury (Upper) MDM Narrative Medical decision making narrative: The x-ray shows no fracture. He does not have a tendon injury, he has chronic deformities of his fingers. He has full range of motion at the DIP and PIP. The foreign matter seen on the x-ray is at the PIP and his injury is not in that area, it is adjacent to the nail. Tetanus is up-to-date and he is placed on Keflex. Imaging Data Finger x-ray: Radiologist's impression: Procedure: XR finger RT min 2V IMAGES REVIEWED: XR finger RT min 2V COMPARISON: None available. CLINICAL INDICATION: little finger crush injury FINDINGS/IMPRESSION: 1. Indeterminant tiny densities overlying the dorsal-ulnar aspect of the fifth digit soft tissues at the level of the PIP joint. Possible tiny retained foreign bodies versus at the skin surface. 2. Apparent fixed flexion deformity at the fifth PIP joint, may suggest extensor tendon injury. 3. No evidence of acute osseous abnormality of the right fifth digit. Electronically authenticated by: WEI BYERS Date: 05/20/2024 20:51 Discharge Plan Discharge Stand Alone Forms: Portal Instructions Chief Complaint: Extremity Injury, Upper Clinical Impression: Finger laceration Patient Disposition: Home, Self-Care Time of Disposition Decision: 21:47 Condition: Good Mode of Transportation: Private Vehicle Prescriptions / Home Meds: New cephalexin 500 mg capsule 500 mg PO QID 5 Days Qty: 20 0RF Print Language: Paraguayan Instructions: Finger Laceration (ED), Laceration Without Closure (ED) Referrals: Alden Kimball DO [Primary Care Provider] - 1 week
[2024-05-20] MEDS: CEPHALEXIN 500 MG CAPSULE PO (22:07)
== END 2024-05-20 22:10 | disposition home or self-care (01) ==
PROVIDERS: Emergency Provider Emergency Medicine; PCP Internal Medicine
DX: S61.216A Laceration without foreign body of right little finger without damage to nail, initial encounter (principal); W23.0XXA Caught, crushed, jammed, or pinched between moving objects, initial encounter
CPT/HCPCS: 73140; 99283

== ENCOUNTER 2024-12-04 09:45 | Outpatient (OUT) | payer MEDICARE, OTHER, SELFPAY ==
--- OUTSIDE RECORDS SUMMARY | 2024-12-04 09:56 | XMS_ITS | CCD ---
Author Organization [facility] CliniSyia Care Team Providers Care Level Vial Inside Grinder Name Role Phone REQUEST, DR SHAW LISTED [...] 11-16-2022 BASO # 0.0 103/ul Normal 0.0-0.1 [facility] Comment on above: Performed By: #### DATCBC #### [facility] [address] [address] [address] Rebel Huitron Basophils/100 WBC (Bld) 0.4 % Normal 0.2-2.0 [facility] Comment on above: Performed By: #### DATCBC #### [facility] [address] [place] [address] Dr. Rebel Huitron EO # 0.1 103/ul Normal 0.0-0.7 [facility] Comment on above: Performed By: #### DATCBC #### [facility] [address] [place] [address] Dr. Rebel Huitron Eosinophils/100 WBC (Bld) 0.9 % Normal 0.9-7.0 [facility] Comment on above: Performed By: #### DATCBC #### [facility] [address] [place] [address] Dr. Rebel Huitron Erythrocyte distribution width (RBC) [Ratio] 13.5 % Normal 11.0-15.0 [facility] Comment on above: Performed By: #### DATCBC #### [facility] [address] [place] [address] Dr. Rebel Huitron Hematocrit (Bld) [Volume fraction] 43.4 % Normal 42.0-54.0 [facility] Comment on above: Performed By: #### DATCBC #### [facility] [address] [place] [address] Dr. Rebel Huitron Hemoglobin (Bld) [Mass/Vol] 14.7 g/dL Normal 14.0-18.0 [facility] Comment on above: Performed By: #### DATCBC #### [facility] [address] [place] [address] Dr. Rebel Huitron IG # 0.03 10e3/ul Normal 0.00-0.03 [facility] Comment on above: Performed By: #### DATCBC #### [facility] [address] [place] [address] Dr. Rebel Huitron IG % 0.4 % Normal 0.0-0.5 [facility] Comment on above: Performed By: #### DATCBC #### [facility] [address] [place] [address] Dr. Rebel Huitron LYMPH # 1.3 103/ul Normal 1.2-3.8 [facility] Comment on above: Performed By: #### DATCBC #### [facility] [address] [place] [address] Dr. Rebel Huitron Lymphocytes/100 WBC (Bld) 19.3 % Critically low 20.5-60.0 [facility] Comment on above: Performed By: #### DATCBC #### [facility] [address] [place] [address] Dr. Rebel Huitron MCH (RBC) [Entitic mass] 28.9 pg Normal 25.9-34.0 [facility] Comment on above: Performed By: #### DATCBC #### [facility] [address] [place] [address] Dr. Rebel Huitron MCHC (RBC) [Mass/Vol] 33.9 g/dL Normal 29.9-35.2 [facility] Comment on above: Performed By: #### DATCBC #### [facility] [address] [place] [address] Dr. Rebel Huitron MCV (RBC) [Entitic vol] 85.3 fL Normal 80.0-94.0 [facility] Comment on above: Performed By: #### DATCBC #### [facility] [address] [place] [address] Dr. Rebel Huitron MONO # 0.5 103/ul Normal 0.3-0.8 [facility] Comment on above: Performed By: #### DATCBC #### [facility] [address] [place] [address] Dr. Rebel Huitron Monocytes/100 WBC (Bld) 8.0 % Normal 1.7-12.0 [facility] Comment on above: Performed By: #### DATCBC #### [facility] [address] [place] [address] Dr. Rebel Huitron NEUT # 4.8 103/ul Normal 1.4-6.5 [facility] Comment on above: Performed By: #### DATCBC #### [facility] [address] [place] [address] Dr. Rebel Huitron Neutrophils/100 WBC (Bld) 71.0 % Normal 43.0-75.0 [facility] Comment on above: Performed By: #### DATCBC #### [facility] [address] [address] [address] Rebel Huitron Platelet mean volume (Bld) [Entitic vol] 11.2 fL Normal 9.5-13.5 [facility] Comment on above: Performed By: #### DATCBC #### [facility] [address] [address] [address] Rebel Huitron PLT 171 103/ul Normal 150-450 [facility] Comment on above: Performed By: #### DATCBC #### [facility] [address] [address] [address] Rebel Huitron RBC 5.09 106/ul Normal 4.70-6.10 [facility] Comment on above: Performed By: #### DATCBC #### [facility] [address] [place] [address] Dr. Rebel Huitron WBC 6.7 103/ul Normal 4.0-11.0 [facility] Comment on above: Performed By: #### DATCBC #### [facility] [address] [address] [address] Rebel Huitron ANTONIO- BMP WITH LIPIDon 2022 Anion gap [Moles/Vol] 11.1 mmol/L Normal [facility] Comment on above: Performed By: #### DATBMP #### [facility] [address] [place] [address] Dr. Rebel Huitron Calcium [Mass/Vol] 8.9 mg/dL Normal 8.5-10.1 [facility] Comment on above: Performed By: #### DATBMP #### [facility] [address] [address] [address] Rebel Huitron Chloride [Moles/Vol] 103 mmol/L Normal 98-107 [facility] Comment on above: Performed By: #### DATBMP #### [facility] [address] [address] [address] Rebel Huitron Cholesterol [Mass/Vol] 175 mg/dL Normal <=200 [facility] Comment on above: Performed By: #### DATBMP #### [facility] [address] [address] [address] Rebel Huitron Cholesterol in HDL [Mass/Vol] 59 mg/dL Normal 40-60 [facility] Comment on above: Performed By: #### DATBMP #### [facility] [address] [address] [address] Rebel Huitron Cholesterol in LDL [Mass/Vol] 107.6 mg/dL Normal [facility] Comment on above: Performed By: #### DATBMP #### [facility] [address] [address] [address] Rebel Huitron CO2 [Moles/Vol] 27.2 mmol/L Normal 21.0-32.0 [facility] Comment on above: Performed By: #### DATBMP #### [facility] [address] [place] [address] Dr. Rebel Huitron Creatinine [Mass/Vol] 0.84 mg/dL Normal 0.70-1.30 [facility] Comment on above: Performed By: #### DATBMP #### [facility] [address] [place] [address] Dr. Rebel Huitron EGFR-AF AUSTRALIAN >60 Normal >=[address] [facility] Comment on above: Performed By: #### DATBMP #### [facility] [address] [place] [address] Dr. Rebel Huitron EGFR-NON AF AUSTRALIAN >60 Normal >=60 [facility] Comment on above: Performed By: #### DATBMP #### [facility] [address] [place] [address] Dr. Rebel Huitron Glucose [Mass/Vol] 85 mg/dL Normal 74-106 [facility] Comment on above: Performed By: #### DATBMP #### [facility] [address] [place] [address] Dr. Rebel Huitron HDL NORMAL > or = 60 mg/dl - LO W CARDIOVASCULAR RISK <40 mg/dl - HIGH CARDIOVASCULAR RISK Normal [facility] Comment on above: Performed By: #### DATBMP #### [facility] [address] [address] [address] Rebel Huitron LDL CALC NORMAL SEE BELOW Normal [facility] Comment on above: Result Comment: <100 mg/dl OPTIMAL 100 - 129 mg/dl NEAR OR ABOVE OPTIMAL 130 - 159 mg/dl BORDERLINE HIGH 160 - 189 mg/dl HIGH >190 mg/dl VERY HIGH Performed By: #### D ATBMP #### [facility] [address] [address] [address] Rebel Huitron Potassium [Moles/Vol] 4.3 mmol/L Normal 3.5-5.1 [facility] Comment on above: Performed By: #### DATBMP #### [facility] [address] [address] [address] Rebel Huitron Sodium [Moles/Vol] 137 mmol/L Normal 136-145 [facility] Comment on above: Performed By: #### DATBMP #### [facility] [address] [address] [address] Rebel Huitron Triglyceride [Mass/Vol] 42 mg/dL Normal <=150 [facility] Comment on above: Performed By: #### DATBMP #### [facility] [address] [address] [address] Rebel Huitron Urea nitrogen [Mass/Vol] 17.0 mg/dL Normal 7.0-18.0 [facility] Comment on above: Performed By: #### DATBMP #### [facility] [address] [address] [address] Rebel Huitron Urea nitrogen/Creatin ine [Mass ratio] 20.2 mg/mg Normal [facility] Comment on above: Performed By: #### DATBMP #### [facility] [address] [address] [address] Rebel Huitron VLDL CALC 8.4 mg/dL Normal [facility] Comment on above: Performed By: #### DATBMP #### [facility] [address] [address] [address] Rebel Huitron COVID-19 Antigenon 2 COVID-19 Antigen Healthcare Worker?: N Bryant Reference Bryant Reference Negative SARS-CoV+SARS-CoV-2 (COVID-19) Ag [...] Space Bryant Disclaimer The Bryant SARS Antigen ANGEILNE does not differentiate Bryant Disclaimer between SARS-CoV and SARS-CoV-2. COVID19 Blank Space Bryant Disclaimer This test was developed and its performance Bryant Disclaimer characteristic determined by [employer] and Bryant Disclaimer validated at [facility]. This Bryant Disclaimer test has not been [...] is terminated or revoked sooner. PERFORMED BY: [place] [address] PATHOLOGIST GERONTOLOGY AIDE JASON SAGE M.D. Normal [facility] Comment on above: Performed By: #### SOFIANEG, COVID-19 SO ANGELINE #### [facility] [address] [place] [address] Bryant Ag Negativeon 12-05-19 22 Bryant Ag Negative Negative Normal Negative [facility] Comment on above: Result Comment: This is a duplicate Teetee a SARS Antigen (ANGELINE) result to be used for statistical tracking purpose only. PERFORMED BY: [place] [address] PATHOLOGIST GERONTOLOGY AIDE JASON SAGE M.D. Performed By: #### S OFIANEG, COVID-19 BRYANT #### [facility] [address] [place] [address] CBC AUTO DIFFon 11-20-2021 BASO # 0.0 103/ul Normal 0.0-0.1 [facility] Comment on above: Performed By: #### DATCBC #### [facility] [address] [address] [address] Rebel Huitron Basophils/100 WBC (Bld) 0.2 % Normal 0.2-2.0 [facility] Comment on above: Performed By: #### DATCBC #### [facility] [address] [place] [address] Dr. Rebel Huitron EO # 0.1 103/ul Normal 0.0-0.7 [facility] Comment on above: Performed By: #### DATCBC #### [facility] [address] [place] [address] Dr. Rebel Huitron Eosinophils/100 WBC (Bld) 1.2 % Normal 0.9-7.0 [facility] Comment on above: Performed By: #### DATCBC #### [facility] [address] [place] [address] Dr. Rebel Huitron Erythrocyte distribution width (RBC) [Ratio] 13.2 % Normal 11.0-15.0 [facility] Comment on above: Performed By: #### DATCBC #### [facility] [address] [place] [address] Dr. Rebel Huitron Hematocrit (Bld) [Volume fraction] 43.2 % Normal 42.0-54.0 [facility] Comment on above: Performed By: #### DATCBC #### [facility] [address] [place] [address] Dr. Rebel Huitron Hemoglobin (Bld) [Mass/Vol] 14.7 g/dL Normal 14.0-18.0 [facility] Comment on above: Performed By: #### DATCBC #### [facility] [address] [place] [address] Dr. Rebel Huitron IG # 0.03 10e3/ul Normal 0.00-0.03 [facility] Comment on above: Performed By: #### DATCBC #### [facility] [address] [place] [address] Dr. Rebel Huitron IG % 0.7 % Critically high 0.0-0.5 [facility] Comment on above: Performed By: #### DATCBC #### [facility] [address] [place] [address] Dr. Rebel Huitron LYMPH # 1.0 103/ul Critically low 1.2-3.8 [facility] Comment on above: Performed By: #### DATCBC #### [facility] [address] [place] [address] Dr. Rebel Huitron Lymphocytes/100 WBC (Bld) 23.4 % Normal 20.5-60.0 [facility] Comment on above: Performed By: #### DATCBC #### [facility] [address] [place] [address] Dr. Rebel Huitron MCH (RBC) [Entitic mass] 29.1 pg Normal 25.9-34.0 [facility] Comment on above: Performed By: #### DATCBC #### [facility] [address] [place] [address] Dr. Rebel Huitron MCHC (RBC) [Mass/Vol] 34.0 g/dL Normal 29.9-35.2 [facility] Comment on above: Performed By: #### DATCBC #### [facility] [address] [place] [address] Dr. Rebel Huitron MCV (RBC) [Entitic vol] 85.5 fL Normal 80.0-94.0 [facility] Comment on above: Performed By: #### DATCBC #### [facility] [address] [place] [address] Dr. Rebel Huitron MONO # 0.5 103/ul Normal 0.3-0.8 [facility] Comment on above: Performed By: #### DATCBC #### [facility] [address] [place] [address] Dr. Rebel Huitron Monocytes/100 WBC (Bld) 12.1 % Critically high 1.7-12.0 [facility] Comment on above: Performed By: #### DATCBC #### [facility] [address] [place] [address] Dr. Rebel Huitron NEUT # 2.7 103/ul Normal 1.4-6.5 [facility] Comment on above: Performed By: #### DATCBC #### [facility] [address] [place] [address] Dr. Rebel Huitron Neutrophils/100 WBC (Bld) 62.4 % Normal 43.0-75.0 [facility] Comment on above: Performed By: #### DATCBC #### [facility] [address] [place] [address] Dr. Rebel Huitron Platelet mean volume (Bld) [Entitic vol] 10.8 fL Normal 9.5-13.5 [facility] Comment on above: Performed By: #### DATCBC #### [facility] [address] [place] [address] Dr. Rebel Huitron PLT 187 103/ul Normal 150-450 [facility] Comment on above: Performed By: #### DATCBC #### [facility] [address] [place] [address] Dr. Rebel Huitron RBC 5.05 106/ul Normal 4.70-6.10 [facility] Comment on above: Performed By: #### DATCBC #### [facility] [address] [place] [address] Dr. Rebel Huitron WBC 4.3 103/ul Normal 4.0-11.0 [facility] Comment on above: Performed By: #### DATCBC #### [facility] [address] [place] [address] Dr. Rebel Huitron ANTONIO- BMP WITH LIPIDon 2021 Anion gap [Moles/Vol] 12.5 mmol/L Normal [facility] Comment on above: Performed By: #### DATBMP #### [facility] [address] [place] [address] Dr. Rebel Huitron Calcium [Mass/Vol] 8.9 mg/dL Normal 8.4-10.2 [facility] Comment on above: Performed By: #### DATBMP #### [facility] [address] [place] [address] Dr. Rebel Huitron Chloride [Moles/Vol] 102 mmol/L Normal 98-107 [facility] Comment on above: Performed By: #### DATBMP #### [facility] [address] [place] [address] Dr. Rebel Huitron Cholesterol [Mass/Vol] 162 mg/dL Normal <=200 [facility] Comment on above: Performed By: #### DATBMP #### [facility] [address] [place] [address] Dr. Rebel Huitron Cholesterol in HDL [Mass/Vol] 50 mg/dL Normal [facility] Comment on above: Performed By: #### DATBMP #### [facility] [address] [address] [address] Rebel Huitron Cholesterol in LDL [Mass/Vol] 102.0 mg/dL Normal [facility] Comment on above: Performed By: #### DATBMP #### [facility] [address] [place] [address] Dr. Rebel Huitron CO2 [Moles/Vol] 29.6 mmol/L Normal 22.0-30.0 [facility] Comment on above: Performed By: #### DATBMP #### [facility] [address] [place] [address] Dr. Rebel Huitron Creatinine [Mass/Vol] 0.93 mg/dL Normal 0.66-1.25 [facility] Comment on above: Performed By: #### DATBMP #### [facility] [address] [place] [address] Dr. Rebel Huitron EGFR-AF AUSTRALIAN >60 Normal >=60 [facility] Comment on above: Performed By: #### DATBMP #### [facility] [address] [place] [address] Dr. Rebel Huitron EGFR-NON AF AUSTRALIAN >60 Normal >=60 [facility] Comment on above: Performed By: #### DATBMP #### [facility] [address] [place] [address] Dr. Rebel Huitron Glucose [Mass/Vol] 90 mg/dL Normal 74-106 [facility] Comment on above: Performed By: #### DATBMP #### [facility] [address] [place] [address] Dr. Rebel Huitron HDL NORMAL > or = 60 mg/dl - LO W CARDIOVASCULAR RISK <40 mg/dl - HIGH CARDIOVASCULAR RISK Normal [facility] Comment on above: Performed By: #### DATBMP #### [facility] [address] [address] [address] Rebel Huitron LDL CALC NORMAL SEE BELOW Normal [facility] Comment on above: Result Comment: <100 mg/dl OPTIMAL 100 - 129 mg/dl NEAR OR ABOVE OPTIMAL 130 - 159 mg/dl BORDERLINE HIGH 160 - 189 mg/dl HIGH >190 mg/dl VERY HIGH Performed By: #### D ATBMP #### [facility] [address] [address] [address] Rebel Huitron Potassium [Moles/Vol] 4.1 mmol/L Normal 3.4-5.0 [facility] Comment on above: Performed By: #### DATBMP #### [facility] [address] [address] [address] Rebel Huitron Sodium [Moles/Vol] 140 mmol/L Normal 137-145 [facility] Comment on above: Performed By: #### DATBMP #### [facility] [address] [address] [address] Rebel Huitron Triglyceride [Mass/Vol] 50 mg/dL Normal <=150 [facility] Comment on above: Performed By: #### DATBMP #### [facility] [address] [address] [address] Rebel Huitron Urea nitrogen [Mass/Vol] 17.0 mg/dL Normal 9.0-20.0 [facility] Comment on above: Performed By: #### DATBMP #### [facility] [address] [address] [address] Rebel Huitron Urea nitrogen/Creatin ine [Mass ratio] 18.3 mg/mg Normal [facility] Comment on above: Performed By: #### DATBMP #### [facility] [address] [address] [address] Rebel Huitron VLDL CALC 10.0 mg/dL Normal [facility] Comment on above: Performed By: #### DATBMP #### [facility] [address] [address] [address] Rebel Huitron Ambulatory Clinical Summaryo n 12-11-2020 Ambulatory Clinical Summary {[id number] Normal [facility] General Surgery Office/Clini c Noteon 12-11-2020 General [...] Medical History Ongoing BPH associated with nocturia Xsfxann-Qszel-Zaggu disease Reducible right inguinal hernia Historical No [...] inactivated - Not Given Patient Refuses Normal [facility] Comment on above: Result Comment: Electronically Signed By : YVETTE BUNCH, Abdifatah Tran\Date and Time Signed: 12/11/20 14:01 EST Ambulatory Clinical Summaryo n 11-29-2020 Ambulatory Clinical Summary {[id number]}CD:[id number] Normal [facility] General Surgery Office/Clini c Noteon 11-29-2020 General Surgery Office/Clinic Note Chief Complaint Post op RIH repair HPI Staff 9 day post operative visit following right inguinal hernia repair with mesh at [facility]. Is not taking pain medication. Denies drainage [...] Medical History Ongoing BPH associated with nocturia Cvlnvov-Xfasb-Guqhp disease Reducible right inguinal hernia Historical No [...] inactivated - Not Given Patient Refuses Normal [facility] Comment on above: Result Comment: Electronically Signed By : YVETTE BUNCH, Abdifatah Tran\Date and Time Signed: 11/29/20 11:03 EST Operative Reporton Operative Report [id number]:127 Normal [facility] Lab Reportson 11-18-2020 Lab Reports [id number]:127 Normal [facility] ECG 12-Leadon 11-13-2020 ECG 12-Lead [id number]#[id number]:127 Normal [facility] Consent for Procedure/Surger yon 11-11-2020 Consent for Procedure/Surger y [id number]#1.00CD:127 Normal [facility] Provider Letter FTon 11-11 Provider Letter [facility], [address] [place] [address] Re: MARIAN NICOLE Date of : 1955 Thank you for your referral of Marian Nicole who was seen on consultation for Right inguinal hernia. A right inguinal herniorrhaphy with mesh is planned. I have enclosed my consultation notes for your review. I will happy to follow Marian. Sincerely yours, Abdifatah Roman MD General Surgery [facility] Facesheeton 11-08-2020 Facesheet [id number]:127 [facility] Ambulatory Clinical Summaryo n 11-07-2020 Ambulatory Clinical Summary {[id number]}CD:[id number] [facility] General Surgery Office/Clini c Noteon 11-07-2020 General Surgery Office/Clinic Note Chief Complaint referral for [facility] Staff 65 year old male presents on [...] Education Inguinal Hernia, Adult, Care After Hernia, Kuhe-bv-Uyce Exercise to Lose Weight, Ihqv-os-Ljzq Problem List/Past Medical History Ongoing BPH associated with nocturia Wazizlr-Lbxbu-Vyliy disease Reducible right inguinal hernia Historical No qualifying data Procedure/Surgical History EGD - Esophagogastroduodenoscopy (11/01/2010), Colonoscopy (11/01/2000), Vasectomy. Medications No active medications Allergies No Known Allergies No Known Medication Allergies Social History Alcohol - Denies Alcohol Use, 11/07/2020 Substance Abuse - Denies Substance Abuse, 11/07/2020 Tobacco Never (less than 100 in lifetime) Tobacco Use:., 11/07/2020 Family History Cardiac arrest: Father. Normal [facility] Comment on above: Result Comment: Electronically Signed [...] Document Reviewed: 11/20/2011 ExitCare? Patient Information ?2014 [employer] [facility]. Family Medicine Inguinal Hernia, Adult Care After [...] directed by your caregiver. ? Only take dqsc-zuv-koehkkx or prescription medicines for pain, discomfort, or [...] Document Reviewed: 09/17/2010 ExitCare? Patient Information ?2014 [employer]. Hernia A hernia happens when an organ [...] Document Reviewed: 04/07/2011 ExitCare? Patient Information ?2013 [employer]. Normal [facility] Physician Referralon 021 Physician Referral [id number] Normal [facility] Vital Signs Date Time Vital Sign Value Performing Clinician Facility 12-01-2023 09:00-0500 Body height 167.64 cm Alden Roberson Other [facility] Other 12-01-2023 09:00-0500 Body mass index (BMI) [Ratio] 26.85 kg/m2 Alden [facility] Other [facility] Other 12-01-2023 09:00-0500 Body weight 75.48 kg Alden [facility] Other [facility] Other 12-01-2023 09:00-0500 Diastolic blood pressure 80 mm[Hg] Alden Ball Other [facility] Other 12-01-2023 09:00-0500 Respiratory rate 12 /min Alden Ball Other [facility] Other 12-01-2023 09:00-0500 Systolic blood pressure 130 mm[Hg] Alden Ball Other [facility] Other 04-05-2023 12:20-0400 Body height 167.64 cm Sahara Hurley Other [facility] Other 04-05-2023 12:20-0400 Body mass index (BMI) [Ratio] 26.6 kg/m2 Sahara Evansmond Other [facility] Other 04-05-2023 12:20-0400 Body temperature 98 [degF] Sahara Hurley Other [facility] Other 04-05-2023 12:20-0400 Body weight 74.75 kg Sahara Hurley Other [facility] Other 04-05-2023 12:20-0400 Respiratory rate 18 /min Sahara Evansmond Other [facility] Other 04-05-2023 12:20-0400 SaO2% (BldA) [Mass fraction] 98 % Sahara Mei Other [facility] Other 11-16-2022 12:00-0500 Body height 167.64 cm Alden Ball Other [facility] Other 11-16-2022 12:00-0500 Body mass index (BMI) [Ratio] 27.02 kg/m2 Alden Roberson Other [facility] Other 11-16-2022 12:00-0500 Body weight 75.93 kg Alden Roberson Other [facility] Other 11-16-2022 12:00-0500 Diastolic blood pressure 70 mm[Hg] Alden Roberson Other [facility] Other 11-16-2022 12:00-0500 Respiratory rate 12 /min Alden Roberson Other [facility] Other 11-16-2022 12:00-0500 Systolic blood pressure 118 mm[Hg] Alden Roberson Other [facility] Other Encounters Encounter Date Encounter Type Care Provider Facility Start: 12-03-2023 End: 12-03-2023 ambulatory Alden Roberson Other [facility] Other Start: 12-03-2023 Telephone encounter Alden France [facility] Start: 12-01-2023 End: 12-01-2023 ambulatory Alden Roberson Other [facility] Other Start: 12-01-2023 Patient encounter procedure Alden Roberson [facility] Start: 04-05-2023 End: 04-05-2023 ambulatory Sahara Hurley Other [facility] Other Start: 04-05-2023 Office outpatient vi sit 15 minutes Sahara Hurley [facility] Start: 11-18-2022 End: 11-18-2022 ambulatory Alden Roberson Other [facility] Other Start: 11-18-2022 Telephone encounter Alden WHALEN [facility] Start: 11-16-2022 Patient encounter procedure Alden Roberson [facility] Start: 11-16-2022 End: 11-17-[address] ALDEN ROBERSON Facility:[facility] Start: 11-22-2021 End: 11-23-[address] SHAW LISTED REQUEST Facility:[facility] Start: 11-20-2021 End: 11-21-[address] ALDEN ROBERSON Facility:[facility] Start: 10-29-2021 Adult health examination Alden Roberson Other [facility] Other Procedures Date Procedure Procedure Detail Performing Clinician Start: 11-16-[address] COLIN Brar ISTED REQUEST Comment on above: Performed By: #### P SASC #### [facility] [address] [place] [address] Dr. Rebel Huitron Start: 11-20-[address] COLIN Brar ISTED REQUEST Comment on above: Performed By: #### P SASC #### [facility] [address] [place] [address] Dr. Rebel Huitron Start: 01-20-2017 General examination [...] 11-07-2020 zoster vaccine, live Polly Roberson Other [facility] Other Payers Date Payer Category Payer Medicare [id number] 1959 Self-pay 1959 Unknown [id number] 1955 Unknown [id number] 2.16.84 [id number] 1955 Unknown [id number] 2.16.84 [id number] Unknown [id number] 2.16.84 [id number] Unknown [id number] 2.16.84 [id number] Social History Date Type Detail Facility Sex Assigned At [facility] Other Evaluation note 12-01-2023 Note Date & [...] (ICD-10 - Z12.5) Yearly MARISSA and PSA [facility] Other Evaluation note 04-05-2023 Note Date & [...] no improvement in 2 to 3 days [facility] Other Evaluation note 11-16-2022 Note Date & [...] PSA (prostate specific antigen) (ICD-10 - Z12.5) [facility] Other Evaluation note Note Date & Type Note Facility Evaluation note No Information [facility] Other History general Narrative - Reported Note [...] EGD 2010 Hospitalization History see surgical history [facility] Other Summary Purpose Family History No Family History Records FoundNo Family History Records FoundNo Family History Records Found Advance Directives No Advanced Directives Records FoundNo Advanced Directives Records FoundNo Advanced Directives Records Found Additional Source Comments (unrecognized sect ion and content) No Status Records FoundNo Status Records FoundNo Status Records Found INFORMATION SOURCE (unrecogn ized section and content) DATE CREATED AUTHOR 12/13/2020 [facility] DATE CREATED AUTHOR AUTHOR'S ORGANIZ ATION 01/19/2022 [facility] DATE CREATED AUTHOR AUTHOR'S ORGANIZ ATION 11/17/2022 [facility] REASON FOR VISIT (unrecogniz ed [...] BE BASED ON THE PRIMARY CLINICAL RECORDS. [employer] provides no warranty or guarantee of the accuracy or completeness of information in this document.
[2024-12-04 12:11] LABS: Prostate Specific Antigen Scrn 2.01 ng/mL (<=4.00)
== END 2024-12-04 09:46 | disposition home or self-care (01) ==
LOC: LAB 09:51
PROVIDERS: PCP Internal Medicine; Visit Provider Internal Medicine
DX: Z12.5 Encounter for screening for malignant neoplasm of prostate (principal)
CPT/HCPCS: 36415; G0103